=== PATIENT | female | born 1985 | race American Indian/Alaskan Native ===

== ENCOUNTER 2016-06-29 14:32 | Emergency (ER) | payer OTHER ==
[2016-06-29 16:30] LABS: Anion Gap 19 mmol/L; Blood Urea Nitrogen 7 mg/dL (7-17); Calcium 9.5 mg/dL (8.4-10.2); Carbon Dioxide 22 mmol/L (22-30); Chloride 101.2 mmol/L (98-107); Glucose 88 mg/dL (65-100); Potassium 3.7 mmol/L (3.6-5.0); Sodium 138 mmol/L (137-145)
[2016-06-29 16:41] LABS: Bilirubin,Urine NEG (Negative); Blood,Urine NEG (Negative); Ketones,Urine NEG (Negative); Leukocyte Esterase,Urine NEG (Negative); Mucus,Urine FEW /HPF; Nitrite,Urine NEG (Negative); Protein,Urine <15 mg/dL mg/dL (Negative); Urobilinogen,Urine < 2.0 mg/dL (<2.0)
[2016-06-29 16:41] LABS: Basophils % (Auto) 0.3 % (0.0-1.8); Eosinophils % (Auto) 0.5 % (0.0-4.3); Hematocrit 36.2 % (30.3-42.9); Hemoglobin 12.2 gm/dl (10.1-14.3); Mean Corpuscular HGB Conc 34 % (30-34); Mean Corpuscular Hemoglobin 29 pg (28-32); Mean Corpuscular Volume 86 fl (79-97); Platelet Count 259 K/mm3 (140-440); Red Cell Distribution Width 13.4 % (13.2-15.2); White Blood Count 10.9 K/mm3 (4.5-11.0)
[2016-06-29] MEDS ORDERED: TYLENOL PO ONE (18:20)
--- NOTE | 2016-06-29 20:20 | Ultrasound Report ---
FINAL REPORT EXAM: US OB \T\gt; = 14 WEEKS FETUS HISTORY: Pelvic pain TECHNIQUE: Real-time sonography was performed of the gravid uterus and images are submitted for interpretation. PRIORS: None. FINDINGS: Detailed anatomic survey was not performed. There is a single fetus in the uterus in a transverse presentation, head to the mother's left. The placenta is posterior and the os is clear. The cervix is long and closed measuring 4.1 cm. The heart is beating at a rate of 161 beats per minute. Biometric measurements give an estimated gestational age of 15 weeks 5 days. IMPRESSION: Single, live intrauterine gestation, estimated gestational age 15 weeks 5 days for an estimated date of confinement of 12/16/2016
[2016-06-29 20:36] VITALS: BP 113/75
--- NOTE | 2016-06-30 20:19 | Emergency Department Report ---
Entered by VICKEY YANG, acting as scribe for WILFRED GURROLA PA. - General Chief complaint: Weakness Stated complaint: 15 WKS PREG/RT ARM NUMB/WEAK/DIZZY Time Seen by Provider: 06/29/16 16:59 Source: patient Mode of arrival: Ambulatory Limitations: No Limitations - History of Present Illness Initial comments: 31 y/o female presents c/o generalized weakness and left arm numbness that started this morning. Pt notes that she had abd pain and lower back pain 2 days ago, which is now resolved. She denies trauma to the arm, N/V/D, vaginal bleeding/dischasrge, dysuria, hematuria, or tingling. Pt notes she is 15 weeks and has had 2 miscarriages in the past. Medication includes Prometrium and chewable vitamins. MD Complaint: generalized weakness -: This morning Location: generalized Severity: mild Quality: numbness (let arm) Consistency: constant Improves with: none Worsens with: none Associated Symptoms: denies other symptoms. denies: other (n/v/d, dysuria, hematuria, vaginal bleeding, tingling) - Related Data Previous Rx's Medication Instructions Recorded Last Taken Type Acetaminophen [Acetaminophen TAB] 650 mg PO BID #24 tablet 06/29/16 Unknown Rx Allergies Allergy/AdvReac Type Severity Reaction Status Date / Time No Known Allergies Allergy Unverified 06/29/16 15:44 ED Review of Systems Comment: All other systems reviewed and negative Gastrointestinal: denies: nausea, vomiting, diarrhea Genitourinary: denies: hematuria, other (vaginal bleeding, dysuria, vaginal discharge) Neurological: weakness, numbness (left arm) ED Past Medical Hx - Past Medical History Previous Medical History?: No - Surgical History Past Surgical History?: No - Social History Smoking Status: Never Smoker Substance Use Type: None - Medications Home Medications: Home Medications Medication Instructions Recorded Confirmed Last Taken Type Acetaminophen [Acetaminophen TAB] 650 mg PO BID #24 tablet 06/29/16 Unknown Rx ED Physical Exam - Other Other exam information: GENERAL: Patient is alert and oriented x 3. No apparent distress, normal gait, atraumatic. HEAD: Head is normocephalic and atraumatic. EYES: Extraocular movements are intact. NECK: Supple. Non edematous, no carotid bruits. No lymphadenopathy or thyromegaly. LUNGS: Symmetrical with respiration. No wheezing, rales or crackles, CTAB. HEART: Regular rate and rhythm with normal S1/S2 present. No murmurs, rubs, or gallops. ABDOMEN: Soft, nondistended. Nontender to palpation on all quadrants. No organomegaly was noted. Positive bowel sounds. No CVA tenderness. EXTREMITIES/MUSCULOSKELETAL: No cyanosis, clubbing, rash, lesions or edema. Full ROM bilaterally. UE/LE Pulses 2+ bilaterally. LE and UE 5+ strength bilaterally SKIN: Warm and dry. No lesions, ulceration or induration present NEUROLOGIC: No focal deficit. - Level of Consciousness 1a. Level of Consciousness: alert - LOC Questions 1b. LOC Questions: answers correctly - LOC Command 1c. LOC Commands: performs tasks correctly - Best Gaze 2. Best Gaze: normal - Visual 3. Visual: no visual loss - Facial Palsy 4. Facial Palsy: normal symmetrical movement - Motor Arm 5b. Motor Arm Right: no drift 5a. Motor Arm Left: no drift - Motor Leg 6a. Motor Leg Left: no drift 6b. Motor Leg Right: no drift - Limb Ataxia 7. Limb Ataxia: absent - Sensory 8. Sensory: normal - Best Language 9. Best Language: no aphasia - Dysarthria 10. Dysarthria: normal - Extinction and Inattention 11. Extinction/Inattention: no abnormality - Scoring Total Score: 0 Stroke Severity: No Stroke Symptoms ED Course Vital Signs 06/29/16 06/29/16 15:45 20:35 Temperature 99.1 F 98.0 F Pulse Rate 82 91 H Respiratory 17 20 Rate Blood Pressure 114/80 Blood Pressure 113/75 [Left] O2 Sat by Pulse 100 96 Oximetry ED Medical Decision Making - Lab Data Result diagrams: 06/29/16 15:53 06/29/16 15:53 - Medical Decision Making 31-year-old female presents with signs and symptoms of ED course: Patient received Tylenol for pain. CBC, BMP, urinalysis, pelvic ultrasound ordered. CBC shows normal results BMP is normal. UA shows no infection. ultrasound shows: Single intrauterine at 15 weeks and 4 days with her confinement date of 12/16/2016. Discussed with patient to follow up with [facility], and to return to the ED if her symptoms return or worsen. Discussed patient to increase fluids intake. Discussed the patient to take medication as prescribed. Discussed the follow actions given and discussed signs and symptoms of . Discussed symptoms such as vaginal bleeding to return to ED Patient states understanding and will follow instructions. Vital signs stable, patient is in no acute distress. ED Disposition Clinical Impression: Normal IUP (intrauterine ) on ultrasound Disposition: DISCHARGED TO HOME OR SELFCARE Is pt being admited?: No Does the pt Need Aspirin: No Condition: Stable Instructions: Morning Sickness (ED), (ED) Additional Instructions: Increase her hydration to 8-10 glasses per day. Make sure you are eating appropriately frequently and every 3-5 hours. Take your vitamins and medication as prescribed. Take Tylenol as needed for pain. Follow-up which her [facility] Prescriptions: Acetaminophen [Acetaminophen TAB] 650 mg PO BID #24 tablet Referrals: PRIMARY CARE, [Primary Care Provider] - 3-5 Days ANNI VILLATORO MD [Referring] - 3-5 Days SHAUN SIMS MD [Referring] - 3-5 Days [facility] [Outside] - 3-5 Days Forms: Accompanied Note, Work/School Release Form(ED) This documentation as recorded by the TREY palacios RYAN,accurately reflects the service I personally performed and the decisions made by ,WILFRED GURROLA PA.
== END 2016-06-29 20:36 | disposition home or self-care (01) ==
LOC: ED 14:32
DX: O26.892 Other specified pregnancy related conditions, second trimester (principal); R53.1 Weakness; R20.0 Anesthesia of skin; Z3A.15 15 weeks gestation of pregnancy
CPT/HCPCS: 36415; 76805; 80048; 81001; 81025; 85025